=== PATIENT | male | born 1945 | race Caucasian/White ===

== ENCOUNTER 2016-09-05 14:41 | Emergency (ER) | payer MEDICARE, OTHER ==
[~2016-09-05] VITALS: Ht 177.8 cm; Wt 84.0 kg
[2016-09-05 14:49] VITALS: BP 196/81; PULSE 97; RESP 21; TEMP 97.6; O2SAT 100
[2016-09-05 14:55] VITALS: BP 196/81; PULSE 93; RESP 21; TEMP 97.6; O2SAT 98
--- NOTE | 2016-09-05 14:57 | PD ---
HPI Chief Complaint: Fall Time Seen by Provider: 14:54 Travel History International Travel<30 days: No Contact w/Intl Traveler<30days: No History of Present Illness HPI 70-year-old male presents to the emergency department via EMS for evaluation after a slip and fall that occurred just prior to arrival. Patient states he slipped he could feel himself falling. He attempted to stop the fall, but landed on his right hip. He denies hitting his head or any LOC. He Denies any neck pain or back pain. No chest pain or abdominal pain. No nausea, vomiting, diarrhea. Patient states he was unable to in the after the fall and unable to put any weight on the right leg. Patient has no chronic medical problems and takes no prescribed medications. He is not an anticoagulants and has no bleeding disorders. Patient denies any history of fractures in the past. [facility] Social History Alcohol Use: No Tobacco Use: No Substance Use: No Allergies-Medications (Allergen,Severity, Reaction): Coded Allergies: No Known Allergies (Unverified , 09/05/16) Review of Systems Except as stated in HPI: all other systems reviewed are Neg Physical Exam Narrative GENERAL: Well-nourished, well-developed male patient, afebrile SKIN: Focused skin assessment warm/dry. No lacerations or abrasions HEAD: Normocephalic. Atraumatic. EYES: No scleral icterus. No injection or drainage. NECK: Supple, trachea midline. No JVD or lymphadenopathy. CARDIOVASCULAR: Regular rate and rhythm without murmurs, gallops, or rubs. Bilateral radial and pedal pulses 2+. RESPIRATORY: Breath sounds equal bilaterally. No accessory muscle use. Lungs sounds clear to auscultation. GASTROINTESTINAL: Abdomen soft, non-tender, nondistended. MUSCULOSKELETAL: No cyanosis, or edema. Patient has tenderness over right lateral hip and right posterior femur. No other bony point tenderness. BACK: Nontender without obvious deformity. No CVA tenderness. No midline spinal tenderness. Data Data Last Documented VS Vital Signs Date Time Temp Pulse Resp B/P Pulse Ox O2 Delivery O2 Flow Rate FiO2 09/05/16 14:55 95 21 99 Room Air 09/05/16 14:55 97.6 196/81 Orders Iv Access Insert/Monitor (09/05/16 14:52) Complete Blood Count With Diff (09/05/16 14:52) Comprehensive Metabolic Panel (09/05/16 14:52) Act Partial Throm Time (Ptt) (09/05/16 14:52) Prothrombin Time / Inr (Pt) (09/05/16 14:52) Hip, Uni(Ap&Lat) W Ap Pelvis (09/05/16 ) Femur (Ap & Lat/2vws) (09/05/16 ) Type And Screen (09/05/16 14:52) Ondansetron Inj (Zofran Inj) (09/05/16 15:00) Morphine Inj (Morphine Inj) (09/05/16 15:00) Sodium Chlor 0.9% 1000 Ml Inj (Ns 1000 M (09/05/16 16:15) Tibia/Fibula (Ap/Lat) (09/05/16 ) Knee, Complete (4vws) (09/05/16 ) Cyclobenzaprine (Flexeril) (09/05/16 18:15) Labs Laboratory Tests Test 09/05/16 15:17 White Blood Count 9.4 TH/MM3 Red Blood Count 3.52 MIL/MM3 Hemoglobin 11.1 GM/DL Hematocrit 31.5 % Mean Corpuscular Volume 89.4 FL Mean Corpuscular Hemoglobin 31.5 PG Mean Corpuscular Hemoglobin 35.2 % Concent Red Cell Distribution Width 14.7 % Platelet Count 240 TH/MM3 Mean Platelet Volume 8.0 FL Neutrophils (%) (Auto) 72.6 % Lymphocytes (%) (Auto) 18.4 % Monocytes (%) (Auto) 6.5 % Eosinophils (%) (Auto) 1.8 % Basophils (%) (Auto) 0.7 % Neutrophils # (Auto) 6.8 TH/MM3 Lymphocytes # (Auto) 1.7 TH/MM3 Monocytes # (Auto) 0.6 TH/MM3 Eosinophils # (Auto) 0.2 TH/MM3 Basophils # (Auto) 0.1 TH/MM3 CBC Comment DIFF FINAL Differential Comment Prothrombin Time 10.5 SEC Prothromb Time International 1.0 RATIO Ratio Activated Partial 24.5 SEC Thromboplast Time Sodium Level 141 MEQ/L Potassium Level 4.1 MEQ/L Chloride Level 106 MEQ/L Carbon Dioxide Level 30.3 MEQ/L Anion Gap 5 MEQ/L Blood Urea Nitrogen 17 MG/DL Creatinine 1.15 MG/DL Estimat Glomerular Filtration 63 ML/MIN Rate Random Glucose 144 MG/DL Calcium Level 8.2 MG/DL Total Bilirubin 0.3 MG/DL Aspartate Amino Transf 32 U/L (AST/SGOT) Alanine Aminotransferase 32 U/L (ALT/SGPT) Alkaline Phosphatase 86 U/L Total Protein 8.2 GM/DL Albumin 3.2 GM/DL Blood Type B POSITIVE Antibody Screen NEGATIVE Blood Bank Comment MDM Medical Decision Making Medical Screen Exam Complete: Yes Emergency Medical Condition: Yes Medical Record Reviewed: Yes Interpretation(s) Last Impressions Tibia/Fibula X-Ray 09/05/16 0000 Signed Impressions: Service Date/Time: Monday, September 05, 2016 16:26 - CONCLUSION: No acute fracture. Timothy Fairchild MD Knee X-Ray 09/05/16 0000 Signed Impressions: Service Date/Time: Monday, September 05, 2016 16:24 - CONCLUSION: 1. Prominent tendinous osteophytes in multiple locations about the knee. 2. No acute fracture or effusion. Timothy Fairchild MD Hip and Pelvis X-Ray 09/05/16 0000 Signed Impressions: Service Date/Time: Monday, September 05, 2016 15:20 - CONCLUSION: 1. Mild osteoarthritic changes. 2. No acute fracture. Timothy Fairchild MD Femur X-Ray 09/05/16 0000 Signed Impressions: Service Date/Time: Monday, September 05, 2016 15:22 - CONCLUSION: No acute osseous injury. Timothy Fairchild MD Differential Diagnosis Fracture versus contusion versus dislocation versus sprain Narrative Course 70-year-old male presents to the emergency department for evaluation after he slipped and fell landing on his right hip. CBC, CMP, PTT, PTT/INR, type and screen are ordered and pending. X-ray of the right hip with pelvis and x-ray of the right femur ordered and pending. Patient is given morphine 4 mg IV and Zofran 4 mg IV for pain. CBC shows no acute abnormality. CMP shows no acute abnormality. Coags are unremarkable. X-ray of the right hip with pelvis shows no acute fracture. X- ray of the right femur shows no acute osseous injury. Upon reexamination, patient states most of his pain now is in his knee and his right lower leg. He states it feels like a muscle pain. X-ray of the right tibia and fibula as well as x-ray of the right knee are ordered. X-ray of the right wrist tibia/fibula shows no acute fracture. X-ray of the right knee shows no acute fracture or effusion. We will evaluate the patient to see if he can walk in the emergency department. Patient was able to walk to the nurses station and back. He is complaining of muscle spasms. Patient is given Flexeril 10 mg PO. He will be discharged with a short term prescription for Lortab and Robaxin. He is encouraged to follow up with a primary care physician. He is to return for any acute, worsening of symptoms. The patient was discharged in stable condition with instructions, including return instructions and follow up instructions. Diagnosis Primary Impression: Contusion of left hip Qualified Code: S70.02XA - Contusion of left hip, initial encounter Additional Impression: Muscle spasm of right calf Referrals: Primary Care Physician 3 days Patient Instructions: Contusion in Adults (ED), General Instructions, Muscle Spasm (ED) Additional Instructions: Take Lortab as directed as needed for pain. Caution this can make you drowsy so do not drive after taking. Fall precautions. Take Robaxin as directed as needed Elevate left leg. Ice for 20 mins 4-5 times daily. Follow-up with your primary care physician. Return to the emergency department for any acute worsening of symptoms. Med/Other Pt SpecificInfo: Prescription(s) given Scripts Methocarbamol (Robaxin)500 Mg [id number] Mg PO TID PRN (MUSCLE SPASM) #21 TAB Ref 0 Prov:Lisseth Kay 09/05/16 Hydrocodone-Acetaminophen (Lortab)5-325 Mg Tab1 Tab PO Q6H PRN (PAIN) #12 TAB Ref 0 Prov:Bel Ribera DO 09/05/16 Disposition: 01 DISCHARGE HOME Condition: Stable Lisseth Kay Sep 05, 2016 14:56
[2016-09-05] MEDS ORDERED: ONDANSETRON HCL 4 MG/2 ML VIAL IV PUSH ONE (15:00)
[2016-09-05] MEDS ORDERED: MORPHINE SULFATE 4 MG/ML INJ IV PUSH ONE (15:00)
[2016-09-05 15:37] LABS: AUTOMATED NEUTROPHIL # 6.8 TH/MM3 (1.8-7.7); BASOPHIL # 0.1 TH/MM3 (0-0.2); BASOPHIL % 0.7 % (0.0-2.0); EOSINOPHIL # 0.2 TH/MM3 (0-0.4); EOSINOPHIL % 1.8 % (0.0-4.0); HEMATOCRIT 31.5 % (39.0-51.0); HEMO FLAGS DIFF FINAL; LYMPH % 18.4 % (9.0-44.0); LYMPHOCYTE # 1.7 TH/MM3 (1.0-4.8); MEAN CELL VOLUME 89.4 FL (80.0-100.0); MEAN CORPUSCULAR HEMOGLOBIN 31.5 PG (27.0-34.0); MEAN CORPUSCULAR HGB CONC 35.2 % (32.0-36.0); MONO % 6.5 % (0.0-8.0); NEUT % 72.6 % (16.0-70.0); PLATELET COUNT 240 TH/MM3 (150-450); RED BLOOD COUNT 3.52 MIL/MM3 (4.50-5.90); RED CELL DISTRIBUTION WIDTH 14.7 % (11.6-17.2); WHITE BLOOD COUNT 9.4 TH/MM3 (4.0-11.0)
[2016-09-05 15:47] LABS: APTT (PATIENT) 24.5 SEC (24.3-30.1); PROTHROMBIN TIME - PATIENT 10.5 SEC (9.8-11.6)
[2016-09-05 16:02] LABS: ALKALINE PHOSPHATASE 86 U/L (45-117); TOTAL BILIRUBIN ADULT 0.3 MG/DL (0.2-1.0)
--- NOTE | 2016-09-05 16:03 | RADRPT ---
EXAM DATE/TIME: 09/05/2016 15:22 [facility] COMPARISON: No previous studies available for comparison. INDICATIONS : Right leg pain, fall. MEDICAL HISTORY : None. SURGICAL HISTORY : None. ENCOUNTER: Initial ACUITY: 1 day PAIN SCORE: 10/10 LOCATION: Right proximal hip FINDINGS: Two view examination of the right femur demonstrates no evidence of fracture or dislocation. Bony mi neralization is normal. The soft tissue structures are intact. CONCLUSION: No acute osseous injury. Timothy Fairchild MD on September 05, 2016 at 16:01 Board Certified Radiologist. This report was verified electronically.
--- NOTE | 2016-09-05 16:03 | RADRPT ---
EXAM DATE/TIME: 09/05/2016 15:20 [facility] COMPARISON: No previous studies available for comparison. INDICATIONS : Right hip pain, fall. MEDICAL HISTORY : None. SURGICAL HISTORY : None. ENCOUNTER: Initial ACUITY: 1 day PAIN SCORE: 10/10 LOCATION: Right proximal hip FINDINGS: Examination of the right hip was performed with AP Pelvis. The primary and secondary trabecular brayan gianfranco of the femoral neck is intact. Mild osteoarthritic changes bilaterally with some loss of joint sp ilan. The acetabulum is grossly intact. There is some atherosclerotic calcification of the regional v asculature CONCLUSION: 1. Mild osteoarthritic changes. 2. No acute fracture. Timothy Fairchild MD on September 05, 2016 at 16:00 Board Certified Radiologist. This report was verified electronically.
[2016-09-05] MEDS ORDERED: SODIUM CHLOR 0.9% 1000 ML INJ 1,000 ML IV ONE (16:15)
[2016-09-05 16:28] LABS: ALT (GPT) 32 U/L (12-78); ANION GAP 5 MEQ/L (5-15); AST (GOT) 32 U/L (15-37); BICARBONATE 30.3 MEQ/L (21.0-32.0); BLOOD UREA NITROGEN 17 MG/DL (7-18); CHLORIDE 106 MEQ/L (98-107); GLOMERULAR FILTRATION RATE 63 ML/MIN (>89); POTASSIUM 4.1 MEQ/L (3.5-5.1); SODIUM (NA) 141 MEQ/L (136-145)
--- NOTE | 2016-09-05 16:49 | RADRPT ---
EXAM DATE/TIME: 09/05/2016 16:24 [facility] COMPARISON: No previous studies available for comparison. INDICATIONS : Right posterior knee pain, fell MEDICAL HISTORY : None. SURGICAL HISTORY : None. ENCOUNTER: Initial ACUITY: 1 day PAIN SCORE: 7/10 LOCATION: Right Knee FINDINGS: Four view examination of the right knee demonstrates no evidence of fracture or dislocation. Bony mi neralization is normal. Prominent osteophytes of the patellar and quadriceps tendons as well as in t he region of the fibula. The articular surfaces are intact. The suprapatellar soft tissues have a no rmal configuration. Atherosclerotic calcification of the regional vasculature. CONCLUSION: 1. Prominent tendinous osteophytes in multiple locations about the knee. 2. No acute fracture or effusion. Timothy Fairchild MD on September 05, 2016 at 16:46 Board Certified Radiologist. This report was verified electronically.
--- NOTE | 2016-09-05 16:50 | RADRPT ---
EXAM DATE/TIME: 09/05/2016 16:26 [facility] COMPARISON: No previous studies available for comparison. INDICATIONS : Right proximal tibia pain, fell MEDICAL HISTORY : None. SURGICAL HISTORY : None. ENCOUNTER: Initial ACUITY: 1 day PAIN SCORE: 7/10 LOCATION: Right Tibia FINDINGS: Two view examination of the right tibia demonstrates no evidence of fracture or dislocation. Bony mi neralization is normal. The soft tissue structures are intact. CONCLUSION: No acute fracture. Timothy Fairchild MD on September 05, 2016 at 16:48 Board Certified Radiologist. This report was verified electronically.
[2016-09-05] MEDS ORDERED: HYDR-3533 PO (18:02)
[2016-09-05] MEDS ORDERED: ROBA500T PO (18:04)
[2016-09-05] MEDS ORDERED: CYCLOBENZAPRINE HCL 10 MG TAB PO ONE (18:15)
[2016-09-05 18:24] VITALS: BP 175/68
== END 2016-09-05 18:25 | disposition home or self-care (01) ==
LOC: NEPC 14:41
DX: S70.02XA Contusion of left hip, initial encounter (principal); M62.831 Muscle spasm of calf; W01.0XXA Fall on same level from slipping, tripping and stumbling without subsequent striking against object, initial encounter
CPT/HCPCS: 73502; 73552; 73564; 73590; 80053; 85025; 85610; 85730; 86850; 86900; 86901; 96374; 96375; 99284; J2270; J2405; J7030

== ENCOUNTER 2016-09-08 09:00 | Emergency (ER) | payer MEDICARE ==
[~2016-09-08 09:00] MED LIST: HYDR-3533 PO; ROBA500T PO
[2016-09-08 09:02] VITALS: BP 187/85; PULSE 122; RESP 24; TEMP 97.8; O2SAT 97
[2016-09-08] MEDS ORDERED: KETOROLAC TROMETHAMINE 60 MG/2 ML (IM) VIAL IM ONE (10:00)
--- NOTE | 2016-09-08 10:23 | PD ---
HPI Chief Complaint: Pain: Acute or Chronic Time Seen by Provider: 09:31 Travel History International Travel<30 days: No Contact w/Intl Traveler<30days: No Traveled to known affect area: No History of Present Illness HPI Patient is a 70-year-old male who comes in complaining of pain to his right leg ever since a fall few days ago. He was seen here after the fall and had x-rays performed that showed no fracture of his hip or his leg. He says when he steps on his heel the pain shoots up his leg into his right hip. He denies any numbness or tingling. He denies any incontinence. He has not had any fever or chills. He has been taking pain medication at home. [facility] Social History Alcohol Use: No Tobacco Use: No Substance Use: No Allergies-Medications (Allergen,Severity, Reaction): Coded Allergies: No Known Allergies (Unverified , 09/05/16) Reported Meds & Prescriptions Reported Meds & Active Scripts Active Robaxin (Methocarbamol) 500 Mg Tab 500 Mg PO TID PRN Lortab (Hydrocodone-Acetaminophen) 5-325 Mg Tab 1 Tab PO Q6H PRN Review of Systems Except as stated in HPI: all other systems reviewed are Neg General / Constitutional: No: Fever, Chills HENT: No: Headaches, Lightheadedness Cardiovascular: No: Chest Pain or Discomfort Respiratory: No: Shortness of Breath Gastrointestinal: No: Nausea, Vomiting Genitourinary: No: Decreased Urinary Output, Incontinence Musculoskeletal: Positive: Myalgias, Arthralgias Skin: No Rash, No Change in Pigmentation Neurologic: No: Paresthesia, Incontinence, Sensory Disturbance Physical Exam Narrative GENERAL: Awake and alert, in no acute distress. SKIN: Focused skin assessment warm/dry. HEAD: Atraumatic. Normocephalic. EYES: Pupils equal and round. No scleral icterus. ENT: Mucous membranes pink and moist. NECK: Trachea midline. No JVD. CARDIOVASCULAR: Regular rate and rhythm. No murmur appreciated. RESPIRATORY: No accessory muscle use. Clear to auscultation. Breath sounds equal bilaterally. MUSCULOSKELETAL: No obvious deformities. No clubbing. No cyanosis. No edema. No bony tenderness. Pain with movement of his right leg, pain with straight leg raise on the right. No lumbar spine tenderness. NEUROLOGICAL: Awake and alert. No obvious cranial nerve deficits. Motor grossly within normal limits. Normal speech. No saddle anesthesia. PSYCHIATRIC: Appropriate mood and affect; insight and judgment normal. Data Data Last Documented VS Vital Signs Date Time Temp Pulse Resp B/P Pulse Ox O2 Delivery O2 Flow Rate FiO2 09/08/16 11:19 16 09/08/16 09:02 97.8 122 187/[address] Lumb Spine W/O Contrast (09/08/16 ) Ct Hip W/O Contrast (09/08/16 ) Ketorolac Inj (Toradol Inj) (09/08/16 10:00) MDM Medical Decision Making Medical Screen Exam Complete: Yes Emergency Medical Condition: Yes Medical Record Reviewed: Yes Differential Diagnosis Muscle strain versus hip fracture versus compression fracture versus sciatica Narrative Course Patient is a 70 year old male who comes in complaining of leg pain since a fall a few days ago. Exam shows straight leg raise on the right. CT lumbar spine and hip performed shows no evidence of fracture. There is a lucency at T11, which the patient is informed about. Advised to follow up with his doctor as soon as possible for MRI to evaluate. He is comfortable with this plan. He was given Toradol for pain with improvement of his symptoms. He says he is comfortable going home at this time. Given prescriptions for Naproxen and Flexeril. Advised to return to as needed for any worsening symptoms. Diagnosis Primary Impression: Contusion of left hip Qualified Code: S70.02XD - Contusion of left hip, subsequent encounter Patient Instructions: General Instructions, Hematoma (ED), Hip Contusion (ED) Additional Instructions: There is a lucency seen on your spine at T11. You need to follow up with your doctor as soon as possible to have an MRI to evaluate this. Take Naproxen and Flexeril as needed for pain. Make sure you stretch and move around multiple times per day. Return to the ED as needed for any worsening symptoms. Scripts Cyclobenzaprine (Flexeril)10 Mg Tab10 Mg PO TID #15 TAB Ref 0 Prov:Linda Sung MD 09/08/16 Naproxen 500 Mg [id number] Mg PO BID #10 TAB Ref 0 Prov:Linda Sung MD 09/08/16 Disposition: 01 DISCHARGE HOME Condition: Stable Linda Sung MD Sep 08, 2016 10:23
--- NOTE | 2016-09-08 10:30 | PD.PN.STU ---
Subjective Remarks CC/HPI: 70 yo wm originally from [place] here for a work conference s/p fall on Tuesday where he fell backwards onto his buttocks c/o of right heel and hip pain since that time. He does not know what caused the fall. He did not hit his head or lose consciousness. He was unable to get up on his own and crawled to the bed to call the senior front end engineer at the place he is staying who accompanied him in sitting on the bed. He then called 911. He has been physically active since that time. He describes a sharp shooting pain in his right heel that radiates up his leg into his hip when he takes a step. Mild tingling and numbness in his toes. No pain on the left side. No pain while standing or lying down. Nothing alleviates the pain other than lying still. He has taken some ibuprofen since that time which has not helped. No past history of falls. X-ray of hip, leg, and foot performed 3 days ago show no sign of fracture. ROS: Denies SOB, headache, changes in bowel/bladder habits, weakness. PMHx: None Medications: None other than the recent NSAIDs mentioned Allergies: NKDA Surgeries: Superficial skin cancer removal and cholecystectomy in distant past. Objective Vitals Vital Signs Date Time Temp Pulse Resp B/P Pulse Ox O2 Delivery O2 Flow Rate FiO2 09/08/16 09:56 16 09/08/16 09:02 97.8 122 24 187/85 97 Room Air Objective Remarks General: 70 yo man appearing his stated age in acute distress laying supine on hospital bed. AOx3. HEENT: NC/AT Cardiac: Regular rhythm. Tachycardic, 2+ systolic slow murmur on LSB. No rubs or gallops. Skin warm and pink. Pulmonary: CTAB. No wheezes, rales, rhonchi. Abdomen: Soft, nontender, non-distended. Small well healing scars noted under umbilicus and epigastric region. Skin: 1 cm abrasion on right great tow. No other visible rashes or lacerations. Extremities: -Left leg: Passive and active ROM WNL -Left hip: Passive and active ROM WNL -Right le+ strength of ankle; pain in calf with resisted dorsiflexion. -Right hip: Pain in right posterior thigh with passive hip flexion to 40 degrees. Passive ROM painless but limited on flexed external rotation. A/P Assessment and Plan Impression: 70 yo wm s/p fall 3 days ago with right hip and heel pain with etiology unknown but likely due to fall. Problem list: 1. Hip pain: Due to recent fall. Will evaluate for hip fracture vs spine fracture vs muscle strain. Will give tramadol and order CT spine and hip. 2. Tachycardia: Likely due to discomfort considering no hx of heart conditions or metabolic disorders. Will re-evaluate after pain medication. 3. Hypertension: Likely due to discomfort considering no hx of hypertension. Will re-evaluate. Discharge Planning To be determined by Dr. Sung. Donna Mccrary Sep 08, 2016 10:29
[2016-09-08 11:19] VITALS: RESP 16
--- NOTE | 2016-09-08 11:25 | RADRPT ---
EXAM DATE/TIME: 09/08/2016 10:21 [facility] COMPARISON: HIP RIGHT (AP&LAT 2/3VWS) W AP PELVIS, September 05, 2016, 15:20. INDICATIONS : Patient fell Tuesday, complains of low back and right hip pain RADIATION DOSE: 21.09 CTDIvol (mGy) MEDICAL HISTORY : Unobtainable SURGICAL HISTORY : Unobtainable ENCOUNTER: Initial ACUITY: 1 day PAIN SCALE: 6/10 LOCATION: Right hip TECHNIQUE: Volumetric scanning of the hip was performed. Using automated exposure control and adjustment of the mA and/or kV according to patient size, radiation dose was kept as low as reasonably achievable to o btain optimal diagnostic quality images. DICOM format image data is available electronically for rev iew and comparison. FINDINGS: No definite fractures, or dislocations are identified. No definite lytic or sclerotic lesion is seen . There is slight osteoarthritis in both hip joints. There is focal hematoma in the right posterior i nner thigh near the insertion site of the hamstrings tendon on ischial tuberosity measuring 5.7 cm in size with haziness in the surrounding soft tissues may represent contusion and/or edema. CONCLUSION: Focal hematoma in the right posterior inner thigh near the insertion site of the hamstrin gs tendon without acute fracture. Trish Kahn MD on September 08, 2016 at 11:19 Board Certified Radiologist. This report was verified electronically.
--- NOTE | 2016-09-08 11:26 | RADRPT ---
EXAM DATE/TIME: 09/08/2016 10:21 [facility] COMPARISON: No previous studies available for comparison. INDICATIONS : Patient fell on Tuesday, complains of low back and right hip pain RADIATION DOSE: 35.86 CTDIvol (mGy) MEDICAL HISTORY : Unobtainable SURGICAL HISTORY : Unobtainable ENCOUNTER: Initial ACUITY: 4 - 6 days PAIN SCALE: 6/10 LOCATION: Right hip TECHNIQUE: Volumetric scanning of the lumbar spine was performed. Multiplanar reconstructions in the sagittal, coronal and oblique axial planes were performed. Using automated exposure control and adjustment of the mA and/or kV according to patient size, radiation dose was kept as low as reasonably achievable t o obtain optimal diagnostic quality images. DICOM format image data is available electronically for review and comparison. FINDINGS: VERTEBRAE: On the very first image of this study there is a lesion involving the T11 vertebral body only seen wi thin its most inferior aspect. This is a lucent lesion with relatively narrow zone of transition. It occupies the left half of the vertebral body. The remaining vertebral bodies throughout the study laquita w preservation of height. ALIGNMENT: No evidence of subluxation. T12-L1: An anterior osteophyte. The thecal sac has a normal diameter. No evidence of disc bulge or protrusio n. The neural foramina are patent bilaterally. L1-L2: An anterior osteophyte. The thecal sac has a normal diameter. No evidence of disc bulge or protrusio n. The neural foramina are patent bilaterally. L2-L3: An anterior osteophyte. The thecal sac has a normal diameter. No evidence of disc bulge or protrusio n. The neural foramina are patent bilaterally. L3-L4: There is a mild broad-based disc bulge eccentric to the left posterior-lateral aspect abutting the ex iting L3 nerve root within the neural foramen. The central canal and right neural foramen are patent. Mild ligamentum flavum hypertrophy and bony hypertrophy of the facets. Anterior osteophyte noted. L4-L5: There is disc space narrowing with broad-based disc osteophyte complex. Moderate ligament flavum hype rtrophy and bony hypertrophy of the facets. Narrowing of the central canal and lateral recesses bilat erally as well as narrowing of the neural foramina bilaterally. L5-S1: There is disc space narrowing and vacuum disc phenomena. Broad based disc osteophyte complex with shaun rowing of the central canal and lateral recesses. Narrowing of the neural foramina bilaterally. This is more pronounced on the left. Moderate ligament flavum hypertrophy and bony hypertrophy of the face ts. CONCLUSION: 1. On the very first image there is partial visualization of a lucent lesion involving the T11 verteb ral body. This needs to be further evaluated. Consider MRI of the thoracic spine if clinically approp riate. 2. Diffuse degenerative changes of the lumbar spine with areas of central canal stenosis at L4-L5 and L5-S1 as well as areas of neural foraminal narrowing. Each level detailed in the above discussion. James Butler Jr., MD on September 08, 2016 at 11:08 Board Certified Radiologist. This report was verified electronically.
[2016-09-08] MEDS ORDERED: NAPR500T PO (11:57)
[2016-09-08] MEDS ORDERED: CYCL1TAB29 PO (11:57)
== END 2016-09-08 12:17 | disposition home or self-care (01) ==
LOC: NEPD 09:00
DX: S70.02XA Contusion of left hip, initial encounter (principal); W19.XXXA Unspecified fall, initial encounter; Z79.899 Other long term (current) drug therapy
CPT/HCPCS: 72131; 73700; 96372; 99284; J1885